=== PATIENT | female | born 1945 | race Caucasian/White ===

== ENCOUNTER 2016-07-12 12:39 | Outpatient (CLI) ==
--- NOTE | 2016-07-12 18:15 | MRI ---
EXAM: Lumbar spine MRI without contrast. HISTORY: Low back pain. COMPARISON: None. TECHNIQUE: Multiplanar, multisequence MR images were acquired of the lumbar spine without contrast. FINDINGS: Five lumbar-type vertebra are present. The lumbar vertebra are normal in height. Intrin sic bone marrow signal is mildly heterogeneous. Small areas of fatty infiltration are present in th e sacrum and left iliac bone. There is a minor thoracolumbar levoscoliosis centered at L2-3. Small ventral and lateral osteophytes are present in the lumbar spine and there is mild desiccation of th e intervertebral discs from L1-2 to L4-5. At L2-3, there is osteophytosis with mild disc space narr owing and degenerative endplate changes which are greatest posteriorly and right laterally. This ma y be due to increased stress at this level. Conus medullaris ends at L1-2 and has normal signal int ensity. The visualized liver, spleen and right kidney are unremarkable. There is a possible small left edson l parapelvic cysts versus a mildly prominent tara. There are no paravertebral masses. T12-L1: The intervertebral disc is normal. A right perineural cyst is present. L1-2: There is a mild disc bulge with a possible tiny central disc protrusion versus asymmetry of t he disc bulge. There is no central canal stenosis or foraminal stenosis. L2-3: There is a mild disc bulge that is asymmetric to the left which narrows the inferior left jadon ral foramen. Mild right lateral degenerative endplate changes are present and there is mild left fo raminal stenosis. L3-4: There is minor disc bulge that is asymmetric to the left which is considered physiologic and mild bilateral hypertrophic facet arthropathy and ligamentum flavum hypertrophy. L4-5: There is a mild disc bulge and small right far lateral endplate osteophytes. Mild to moderat e bilateral hypertrophic facet arthropathy and ligamentum flavum hypertrophy is present and there ar e small right and minor left facet effusions. Small synovial cysts are present along the posterior inferior left facet joint and there is a 7 mm x 5.6 mm synovial cyst along the anteromedial right fa cet joint. This effaces the right lateral recess and there is mild spinal stenosis, right lateral r ecess stenosis with encroachment on the right L5 nerve roots and mild right neural foraminal stenosi s. AP diameter of the thecal sac is 9.4 mm. L5-S1: The intervertebral disc is normal. IMPRESSION: 1. 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 2. Possible tiny central disc protrusion L1-2.
== END 2016-07-12 12:40 | disposition home or self-care (01) ==
LOC: RAD 12:39
PROVIDERS: ATTEND Family Medicine
DX: M54.5 Low back pain (principal)

== ENCOUNTER 2016-09-06 11:47 | Outpatient (CLI) ==
--- NOTE | 2016-09-06 13:34 | DI ---
EXAM: Three x-rays of the left ankle. Comparison: 12/05/2015. Reason for exam: Left ankle pain. FINDINGS: Tiny calcific density inferior to the lateral malleolus seen on the oblique image. The t alar dome is intact. There is no widening of the medial clear space. No other fracture or malalignm ent. Impression: 1. Tiny calcific density inferior to the lateral malleolus may represent degenerative change versus a small avulsion. The patient's pain persists, repeat imaging may be performed. 2. No other areas of acute fracture or dislocation are seen.
--- NOTE | 2016-09-06 13:34 | DI ---
EXAM: Right knee three-view HISTORY: Right knee pain COMPARISON: None FINDINGS: No fracture or dislocation. Minimal retropatellar osteophyte formation. The medial, late ral, and patellofemoral compartments are normal in height. Probable small joint effusion. IMPERSSION: 1. No fracture or dislocation. 2. Minimal patellofemoral osteoarthritis. 3. Probable small joint effusion.
== END 2016-09-06 11:48 | disposition home or self-care (01) ==
LOC: RAD 11:47
PROVIDERS: ATTEND Nurse Practitioner Family
DX: M25.572 Pain in left ankle and joints of left foot (principal); M25.561 Pain in right knee

== ENCOUNTER 2016-10-25 08:06 | Outpatient (CLI) ==
[2016-10-25 08:15] LABS: BASOPHILS # (AUTO) 0.1 K/uL (0-0.2); BASOPHILS % (AUTO) 1.1 % (0.0-3.0); EOSINOPHILS # (AUTO) 0.2 K/ul (0.0-0.7); EOSINOPHILS % (AUTO) 2.9 % (0.0-7.0); HEMATOCRIT 37.9 % (37.0-47.0); HEMOGLOBIN 12.8 g/dl (12.0-16.0); LYMPHOCYTES # (AUTO) 1.6 K/uL (0.60-3.4); LYMPHOCYTES % (AUTO) 29.8 (10.0-50.0); MEAN CORPUSCULAR HEMOGLOBIN 29.4 pg (27.0-31.0); MEAN CORPUSCULAR HGB CONC 33.8 (31.8-35.4); MEAN CORPUSCULAR VOLUME 86.9 fl (81.0-99.0); MONOCYTES # (AUTO) 0.5 K/uL (0.4-2.0); MONOCYTES % (AUTO) 9.4 (0-10); NEUTROPHILS % (AUTO) 56.8; PLATELET COUNT 256 10^3/uL (140-440); RED BLOOD COUNT 4.36 10^6/ul (4.20-5.40); WHITE BLOOD COUNT 5.24 K/ul (4.6-10.2)
[2016-10-25 08:49] LABS: ALBUMIN 3.6 g/dL (3.4-5.0); ALBUMIN/GLOBULIN RATIO 1.24; ANION GAP 13.2; BILIRUBIN,TOTAL 0.66 mg/dL (0.00-1.20); BUN/CREATININE RATIO 18.84; CALCIUM 9.2 mg/dL (8.2-10.2); CHOL/HDL RATIO 3.6 (4.5-5.5); CREATININE 0.69 mg/dL (0.60-1.30); POTASSIUM 4.2 mmol/L (3.5-5.10); TOTAL PROTEIN 6.5 g/dL (5.8-8.1)
== END 2016-10-25 08:07 | disposition home or self-care (01) ==
LOC: LAB 08:06
PROVIDERS: ATTEND Nurse Practitioner Family
DX: E75.6 Lipid storage disorder, unspecified (principal); F32.9 Major depressive disorder, single episode, unspecified; M12.88 Other specific arthropathies, not elsewhere classified, other specified site
CPT/HCPCS: 36415; 80053; 80061; 85025

== ENCOUNTER 2017-12-07 10:59 | Outpatient (POV) | END 2017-12-07 17:00 | LOC: OUTPT 10:59 | PROVIDERS: ATTEND Otolaryngology | DX: R42 Dizziness and giddiness (principal) ==

== ENCOUNTER 2017-12-30 12:54 | Outpatient (CLI) | END 2017-12-30 12:55 | disposition home or self-care (01) | LOC: RHC-LAB 12:54 | PROVIDERS: ATTEND Nurse Practitioner Family | DX: R03.0 Elevated blood-pressure reading, without diagnosis of hypertension (principal); R53.83 Other fatigue; Z79.899 Other long term (current) drug therapy | CPT/HCPCS: 36415; 80053; 80061; 82607; 84443; 85025 ==

== ENCOUNTER 2018-09-27 11:25 | Outpatient (CLI) | END 2018-09-27 11:26 | disposition home or self-care (01) | LOC: RHC-LAB 11:25 | PROVIDERS: ATTEND Nurse Practitioner Family | DX: Z12.31 Encounter for screening mammogram for malignant neoplasm of breast (principal); M54.2 Cervicalgia; F41.9 Anxiety disorder, unspecified; E78.5 Hyperlipidemia, unspecified | CPT/HCPCS: 36415; 80053; 80061; 84443; 85025 ==

== ENCOUNTER 2018-10-10 09:58 | Outpatient (CLI) ==
--- NOTE | 2018-10-11 09:41 | MAMMO ---
EXAM: Bilateral digital screening mammogram (2-D and 3-D) History: Screening Comparison: Bilateral mammogram 06/09/2017 Findings: MLO and CC views of bilateral breasts demonstrate heterogeneously dense breast parenchyma which can obscure small lesions. CAD was reviewed by the radiologist. Tomosynthesis was performed. Stable benign mass within the right breast. Stable biopsy clip within the right breast. There are no developing masses, no suspicious microcalcifications and no architectural distortions Impression: Stable benign mammogram. Recommend followup routine screening mammography in 1 year. BI-RADS 2, benign
== END 2018-10-10 09:59 | disposition home or self-care (01) ==
LOC: RAD 09:58
PROVIDERS: ATTEND Nurse Practitioner Family
DX: Z12.31 Encounter for screening mammogram for malignant neoplasm of breast (principal)